=== PATIENT | female | born 1960 | race Hispanic/Latino ===

== ENCOUNTER 2017-08-18 12:18 | Emergency (ER) | payer MEDICAID ==
[2017-08-18] MEDS ORDERED: BUPIVACAINE/PF 0.5% 30ML VIAL ONE (13:01)
[2017-08-18] MEDS ORDERED: CEFTRIAXONE SODIUM 1 GM ONE (14:23)
[2017-08-18] MEDS ORDERED: LIDOCAINE HCL-MPF 1% 2ML VIAL ONE (14:23)
== END 2017-08-18 14:36 | disposition home or self-care (01) ==
LOC: EDH 12:18
DX: S91.012A Laceration without foreign body, left ankle, initial encounter (principal); S71.151A Open bite, right thigh, initial encounter; E11.9 Type 2 diabetes mellitus without complications; E78.5 Hyperlipidemia, unspecified; Z88.1 Allergy status to other antibiotic agents; Z88.6 Allergy status to analgesic agent; Z85.038 Personal history of other malignant neoplasm of large intestine; Z79.4 Long term (current) use of insulin; Z72.0 Tobacco use; W54.0XXA Bitten by dog, initial encounter; Y93.89 Activity, other specified; Y92.89 Other specified places as the place of occurrence of the external cause; Y99.8 Other external cause status
CPT/HCPCS: 12032; 73610; 96372; 99284; J0696; J3490 ×2

== ENCOUNTER 2018-02-20 13:37 | Inpatient (IN) | payer MEDICAID ==
[~2018-02-20] VITALS: Ht 160 cm; Wt 77.6 kg
[2018-02-20 14:27] LABS: BASOPHILS % (AUTO) 0.5 % (0.0-5.0); EOSINOPHILS % (AUTO) 1.2 % (0.0-8.0); MEAN CORPUSCULAR HEMOGLOBIN 30.2 pg (27.0-33.0); MEAN CORPUSCULAR HGB CONC 34.1 g/dL (32.0-36.0); MEAN CORPUSCULAR VOLUME 88.6 fL (79-99); MONOCYTES % (AUTO) 3.9 % (3.0-13.0); NEUTROPHILS % (AUTO) 74.4 % (40.0-77.0); PLATELET COUNT (AUTO) 202 K/uL (130-400); RED BLOOD CELL COUNT(AUTO) 4.06 MIL/uL (4.00-5.50); RED CELL DISTRIBUTION WIDTH 13.4 % (11.0-15.5); WHITE BLOOD COUNT (AUTO) 8.9 K/uL (4.8-10.8)
[2018-02-20 14:28] LABS: APPEARANCE,URINE Turbid (CLEAR); BILIRUBIN,URINE Negative (NEGATIVE); COLOR,URINE Yellow (YELLOW); GLUCOSE, URINE (UA) >=1000 mg/dL (NEGATIVE); KETONES,URINE 15 mg/dL (NEGATIVE); LEUKOCYTE ESTERASE ,URINE Large (NEGATIVE); NITRATE,URINE Negative (NEGATIVE); OCCULT BLOOD,URINE Moderate (NEGATIVE); PROTEIN,URINE POS 2+ (NEGATIVE)
[2018-02-20] MEDS ORDERED: ONDANSETRON HCL MDV 20ML 2 MG/ML VIAL ONE (14:34)
[2018-02-20] MEDS ORDERED: KETOROLAC TROMETHAMINE 30MG/ML ONE (14:35)
[2018-02-20] MEDS ORDERED: CEFTRIAXONE SODIUM 1 GM ONE (14:35)
[2018-02-20] MEDS ORDERED: SODIUM CHLORIDE 0.9% 1000ML 1,000 ML IV ONE ×2 (14:35→19:44)
[2018-02-20 14:43] LABS: ALBUMIN 3.1 g/dL (3.5-5.0); BILIRUBIN,TOTAL 0.6 mg/dL (0.2-1.0); CREATININE 1.2 mg/dL (0.5-1.5); POTASSIUM 4.7 mmol/L (3.5-5.1); TOTAL PROTEIN, SERUM 6.8 g/dL (6.0-8.3)
[2018-02-20 14:50] LABS: BACTERIA,URINE Few /HPF (None Seen); SQUAMOUS EPITHELIAL CELL,UR 0-2 /HPF (0-2); WBC,URINE >100 /HPF (0-1)
[2018-02-20] MEDS ORDERED: INSULIN HUMULIN R 100 UNIT/ML 3ML ONE ×2 (15:15→17:00)
[2018-02-20] MEDS: SODIUM CHLORIDE 0.9% 1000ML 1,000 ML IV SCH (19:30)
[2018-02-20] MEDS ORDERED: ZOSYN 3.375GM+NS 50ML 50 ML IV ONE ×2 (19:44→19:47)
[2018-02-20] MEDS ORDERED: GLUCAGON 1MG KIT 1 MG ML IM PRN (19:45)
[2018-02-20] MEDS ORDERED: DEXTROSE 50%-WATER 50 ML DISP.SYRIN IV PRN (19:45)
[2018-02-20] MEDS ORDERED: SODIUM CHLORIDE 0.9% 50 ML IV ONE (19:48)
[2018-02-20] MEDS: ZOSYN 3.375GM+NS 50ML 50 ML IV SCH (20:00)
[2018-02-20 20:45] VITALS: BP 125/95
[2018-02-20] MEDS: INSULIN R PO SS1/2 SQ SCH (20:56)
[2018-02-20] MEDS: INSULIN R PO SS2 SQ SCH (20:57)
[2018-02-21 00:20] VITALS: BP 118/57
[2018-02-21] MEDS ORDERED: ONDA4TAB9 PO (00:29)
[2018-02-21] MEDS ORDERED: ISOS30TA6 PO (00:29)
[2018-02-21] MEDS ORDERED: SERT50TA12 PO (00:29)
[2018-02-21] MEDS ORDERED: AMLO-128 PO (00:29)
[2018-02-21] MEDS ORDERED: TRAM50TA4 PO (00:29)
[2018-02-21] MEDS ORDERED: ATOR10 PO (00:29)
[2018-02-21] MEDS ORDERED: RIFA150C3 PO (00:29)
[2018-02-21] MEDS ORDERED: GABA-529 PO (00:29)
[2018-02-21] MEDS ORDERED: MECL12.585 PO (00:29)
[2018-02-21] MEDS ORDERED: IBUP-2070 PO (00:29)
[2018-02-21 04:00] VITALS: BP 112/56
[2018-02-21] MEDS ORDERED: SODIUM CHLORIDE 0.9% 500ML 500 ML IV ONE (04:26)
[2018-02-21] MEDS ORDERED: ONDANSETRON HCL 4 MG/2 ML VIAL IVP PRN (04:30)
[2018-02-21] MEDS ORDERED: ONDANSETRON HCL MDV 20ML 2 MG/ML VIAL ONE (04:40)
[2018-02-21] MEDS ORDERED: ACETAMINOPHEN 325 MG TAB ONE (04:40)
[2018-02-21] MEDS: ZOSYN 3.375GM+NS 50ML 50 ML IV SCH ×3 (04:43→21:44)
[2018-02-21] MEDS: INSULIN R PO SS1/2 SQ SCH ×4 (06:41→21:00)
[2018-02-21] MEDS: INSULIN R PO SS2 SQ SCH ×4 (06:45→21:42)
[2018-02-21 07:00] VITALS: BP 121/65
[2018-02-21] MEDS: PANTOPRAZOLE SODIUM 40 MG TABLET.DR PO SCH (08:56)
[2018-02-21] MEDS ORDERED: ENOXAPARIN SODIUM 40 MG/0.4 ML SYRINGE SQ SCH (09:00)
[2018-02-21 11:00] VITALS: BP 110/52
[2018-02-21] MEDS: SODIUM CHLORIDE 0.9% 1000ML 1,000 ML IV SCH (12:10)
[2018-02-21 16:00] VITALS: BP 126/66
[2018-02-21] MEDS ORDERED: KETOROLAC TROMETHAMINE 30MG/ML IV PRN (16:30)
[2018-02-21] MEDS ORDERED: MORPHINE SULFATE 4 MG/1ML SYG IV PRN (16:30)
[2018-02-21 19:00] VITALS: BP 119/55
[2018-02-21] MEDS: ONDANSETRON 4 MG TABLET PO SCH (21:45)
[2018-02-21] MEDS: TRAMADOL HCL 50 MG TABLET PO SCH (21:45)
[2018-02-21] MEDS: MECLIZINE HCL 12.5 MG TABLET PO SCH (21:46)
[2018-02-21] MEDS: ATORVASTATIN CALCIUM 20 MG TABLET PO SCH (21:46)
[2018-02-21] MEDS: GABAPENTIN 100 MG CAPSULE PO SCH (21:46)
[2018-02-21] MEDS: AMLODIPINE BENAZEPRIL PO SCH (21:48)
[2018-02-22] VITALS (7 sets, daily range): BP systolic 122–154; BP diastolic 53–66
[2018-02-22] MEDS ORDERED: ONDANSETRON HCL MDV 20ML 2 MG/ML VIAL ONE (00:09)
[2018-02-22 04:13] LABS: HEMATOCRIT 33.5 % (36-48); MEAN CORPUSCULAR HEMOGLOBIN 30.2 pg (27.0-33.0); MEAN CORPUSCULAR HGB CONC 34.2 g/dL (32.0-36.0); MEAN CORPUSCULAR VOLUME 88.4 fL (79-99); PLATELET COUNT (AUTO) 201 K/uL (130-400); RED CELL DISTRIBUTION WIDTH 13.8 % (11.0-15.5)
[2018-02-22 04:32] LABS: POTASSIUM 3.4 mmol/L (3.5-5.1)
[2018-02-22] MEDS: ZOSYN 3.375GM+NS 50ML 50 ML IV SCH ×3 (05:38→21:18)
[2018-02-22] MEDS: SODIUM CHLORIDE 0.9% 1000ML 1,000 ML IV SCH ×2 (05:38→21:30)
[2018-02-22] MEDS: INSULIN R PO SS1/2 SQ SCH ×4 (06:17→21:32)
[2018-02-22] MEDS: INSULIN R PO SS2 SQ SCH ×3 (06:18→16:30)
[2018-02-22] MEDS ORDERED: IOHEXOL-350 75 ML VIAL IV ONE (08:13)
[2018-02-22] MEDS ORDERED: POTASSIUM CHLORIDE 10% ELIXIR 20 MEQ/15 ML UDCUP PO PRN (08:30)
[2018-02-22] MEDS ORDERED: POTASSIUM CHLORIDE 20 MEQ ERTAB PO PRN (08:30)
[2018-02-22] MEDS ORDERED: LIDOCAINE HCL-MPF 1% 2ML VIAL IVP PRN (08:30)
[2018-02-22] MEDS ORDERED: POTASSIUM CHLORIDE 20MEQ/100ML 100 ML IV PRN (08:30)
[2018-02-22] MEDS: TRAMADOL HCL 50 MG TABLET PO SCH ×2 (09:00→21:21)
[2018-02-22] MEDS: MECLIZINE HCL 12.5 MG TABLET PO SCH ×3 (09:00→21:20)
[2018-02-22] MEDS: GABAPENTIN 100 MG CAPSULE PO SCH ×3 (09:00→21:20)
[2018-02-22] MEDS: PANTOPRAZOLE SODIUM 40 MG TABLET.DR PO SCH (09:00)
[2018-02-22] MEDS: AMLODIPINE BENAZEPRIL PO SCH ×2 (09:00→21:22)
[2018-02-22] MEDS: ONDANSETRON 4 MG TABLET PO SCH ×2 (13:05→21:21)
[2018-02-22] MEDS: SERTRALINE HCL 50 MG TABLET PO SCH (13:18)
[2018-02-22] MEDS: ISOSORBIDE MONO 30MG TAB SR PO SCH (13:25)
[2018-02-22] MEDS: ATORVASTATIN CALCIUM 20 MG TABLET PO SCH (21:20)
[2018-02-22] MEDS: INSULIN GLARGINE 100 UNITS/ML 10 ML VIAL SQ SCH (21:30)
[2018-02-23] MEDS: ACETAMINOPHEN 325 MG TAB PO PRN ×2 (02:13→15:52)
[2018-02-23] MEDS: ZOSYN 3.375GM+NS 50ML 50 ML IV SCH ×3 (03:27→21:36)
[2018-02-23 04:00] VITALS: BP 123/51
[2018-02-23] MEDS: SODIUM CHLORIDE 0.9% 1000ML 1,000 ML IV SCH ×2 (05:31→21:45)
[2018-02-23] MEDS: INSULIN R PO SS1/2 SQ SCH ×4 (06:42→21:54)
[2018-02-23 08:32] VITALS: BP 125/61
[2018-02-23] MEDS: AMLODIPINE BENAZEPRIL PO SCH ×2 (09:00→21:00)
[2018-02-23] MEDS: ISOSORBIDE MONO 30MG TAB SR PO SCH (09:31)
[2018-02-23] MEDS: MECLIZINE HCL 12.5 MG TABLET PO SCH ×3 (09:31→21:00)
[2018-02-23] MEDS: GABAPENTIN 100 MG CAPSULE PO SCH ×3 (09:32→21:38)
[2018-02-23] MEDS: PANTOPRAZOLE SODIUM 40 MG TABLET.DR PO SCH (09:34)
[2018-02-23] MEDS: TRAMADOL HCL 50 MG TABLET PO SCH ×2 (09:34→21:38)
[2018-02-23] MEDS: ONDANSETRON 4 MG TABLET PO SCH ×2 (09:34→21:38)
[2018-02-23] MEDS: SERTRALINE HCL 50 MG TABLET PO SCH (09:35)
[2018-02-23 11:54] VITALS: BP 118/58
[2018-02-23 16:04] VITALS: BP 115/55
[2018-02-23 19:00] VITALS: BP 127/58
[2018-02-23] MEDS: ATORVASTATIN CALCIUM 20 MG TABLET PO SCH (21:38)
[2018-02-23] MEDS: INSULIN GLARGINE 100 UNITS/ML 10 ML VIAL SQ SCH (21:52)
[2018-02-23 23:00] VITALS: BP 137/58
[2018-02-24 03:00] VITALS: BP 128/64
[2018-02-24] MEDS: ZOSYN 3.375GM+NS 50ML 50 ML IV SCH ×2 (04:18→11:22)
[2018-02-24] MEDS: INSULIN R PO SS1/2 SQ SCH ×2 (06:06→11:15)
[2018-02-24 08:05] VITALS: BP 125/66
[2018-02-24] MEDS: AMLODIPINE BENAZEPRIL PO SCH (08:46)
[2018-02-24] MEDS: MECLIZINE HCL 12.5 MG TABLET PO SCH ×2 (08:48→13:45)
[2018-02-24] MEDS: ONDANSETRON 4 MG TABLET PO SCH (08:48)
[2018-02-24] MEDS: ISOSORBIDE MONO 30MG TAB SR PO SCH (08:48)
[2018-02-24] MEDS: GABAPENTIN 100 MG CAPSULE PO SCH ×2 (08:48→13:45)
[2018-02-24] MEDS: PANTOPRAZOLE SODIUM 40 MG TABLET.DR PO SCH (08:49)
[2018-02-24] MEDS: SERTRALINE HCL 50 MG TABLET PO SCH (08:49)
[2018-02-24] MEDS: TRAMADOL HCL 50 MG TABLET PO SCH (08:49)
[2018-02-24 12:06] VITALS: BP 125/50
[2018-03-26] MEDS ORDERED: POTASSIUM CHLORIDE 20 MEQ ERTAB PO ONE (06:32)
== END 2018-02-24 16:30 | disposition home or self-care (01) | DRG 720 ==
LOC: EDH 13:37 → EDHIP 13:38 → OBSVTOIN 13:38 → 3AH 20:18
PROVIDERS: ADMIT Internal Medicine; ATTEND Internal Medicine
DX: A41.9 Sepsis, unspecified organism (principal); E11.40 Type 2 diabetes mellitus with diabetic neuropathy, unspecified; E11.649 Type 2 diabetes mellitus with hypoglycemia without coma; N10 Acute pyelonephritis; F41.9 Anxiety disorder, unspecified; F32.9 Major depressive disorder, single episode, unspecified; E11.65 Type 2 diabetes mellitus with hyperglycemia; N20.0 Calculus of kidney; I10 Essential (primary) hypertension; E78.5 Hyperlipidemia, unspecified; I25.10 Atherosclerotic heart disease of native coronary artery without angina pectoris; Z91.19 Patient's noncompliance with other medical treatment and regimen; Z82.5 Family history of asthma and other chronic lower respiratory diseases; Z82.49 Family history of ischemic heart disease and other diseases of the circulatory system
CPT/HCPCS: 36415; 74176; 74178; 80048; 80053; 81001; 82947; 82948; 84132; 85025; 85027; 87040; 87088; 99291; J0696; J1650; J1815; J1885; J2543; J7030; J7040; J7070; Q0162; Q9967

== ENCOUNTER → 2019-09-20 | Outpatient (CLI) | payer MEDICAID ==
[~2019-09-20] MED LIST: AMLO-97 PO; ATOR10 PO; GABA-529 PO; IBUP-2070 PO; ISOS30TA6 PO; MECL-183 PO; ONDA-104 PO; RIFA150C3 PO; SERT50TA12 PO; TRAM50TA4 PO
== END | disposition home or self-care (01) ==
LOC: SHCH 09:51
PROVIDERS: ATTEND Internal Medicine Cardiovascular Disease
DX: I73.9 Peripheral vascular disease, unspecified (principal)
CPT/HCPCS: 93925

== ENCOUNTER → 2019-09-23 | Outpatient (CLI) | payer MEDICAID ==
[~2019-09-23] MED LIST changes: +REGADENOSON 0.4 MG/5 ML PF SYG IVP SCH
== END | disposition home or self-care (01) ==
LOC: SHCH 08:58
PROVIDERS: ATTEND Internal Medicine Cardiovascular Disease
DX: R07.9 Chest pain, unspecified (principal)
CPT/HCPCS: 78452; 93017; 96374; A9500 ×2; J2785

== ENCOUNTER → 2019-10-02 | Outpatient (CLI) | payer MEDICAID ==
[~2019-10-02] MED LIST changes: -REGADENOSON 0.4 MG/5 ML PF SYG IVP SCH
== END | disposition home or self-care (01) ==
LOC: SHCH 10:00
PROVIDERS: ATTEND Internal Medicine Cardiovascular Disease
DX: I10 Essential (primary) hypertension (principal)
CPT/HCPCS: 93306; 93356

== ENCOUNTER → 2019-10-29 | Outpatient (CLI) | payer MEDICAID ==
[~2019-10-29] MED LIST changes: +IOHEXOL 350 MG/ML 100ML INFUS..BTL IV ONE; +IOHEXOL-350 50ML VIAL IV ONE
== END | disposition home or self-care (01) ==
LOC: RAH 07:48
PROVIDERS: ATTEND Internal Medicine Cardiovascular Disease
DX: K57.30 Diverticulosis of large intestine without perforation or abscess without bleeding (principal); I70.0 Atherosclerosis of aorta; K76.0 Fatty (change of) liver, not elsewhere classified; K59.00 Constipation, unspecified; I73.9 Peripheral vascular disease, unspecified; N28.1 Cyst of kidney, acquired
CPT/HCPCS: 75635; Q9967 ×2

== ENCOUNTER → 2020-10-01 | Outpatient (CLI) | payer MEDICAID ==
[~2020-10-01] VITALS: Ht 157.5 cm; Wt 66.2 kg
[~2020-10-01] MED LIST changes: -IOHEXOL 350 MG/ML 100ML INFUS..BTL IV ONE; -IOHEXOL-350 50ML VIAL IV ONE; -ISOS30TA6 PO; +ISOS30TA92 PO; -MECL-183 PO; +MECL-226 PO; +REGADENOSON 0.4 MG/5 ML PF SYG IVP SCH; +SERT-439 PO; -SERT50TA12 PO
== END | disposition home or self-care (01) ==
LOC: SHCH 08:40
PROVIDERS: ATTEND Internal Medicine Cardiovascular Disease
DX: R07.9 Chest pain, unspecified (principal)
CPT/HCPCS: 78452; 93017; 96374; A9500 ×2; J2785

== ENCOUNTER → 2020-10-16 | Outpatient (CLI) | payer MEDICAID ==
[~2020-10-16] MED LIST changes: -REGADENOSON 0.4 MG/5 ML PF SYG IVP SCH
== END | disposition home or self-care (01) ==
LOC: SHCH 10:32
PROVIDERS: ATTEND Internal Medicine Cardiovascular Disease
DX: R60.9 Edema, unspecified (principal)
CPT/HCPCS: 93970

== ENCOUNTER 2021-01-31 11:21 | Emergency (ER) | payer MEDICAID ==
[~2021-01-31] VITALS: Ht 157.5 cm; Wt 68.9 kg
[2021-01-31 11:30] VITALS: BP 140/56
[2021-01-31 11:41] LABS: BASOPHILS % (AUTO) 0.6 % (0.0-5.0); EOSINOPHILS % (AUTO) 0.2 % (0.0-8.0); HEMATOCRIT 35.3 % (36-48); LYMPHOCYTES % (AUTO) 16.9 % (21.0-51.0); MEAN CORPUSCULAR HEMOGLOBIN 29.8 pg (27.0-33.0); MEAN CORPUSCULAR HGB CONC 32.3 g/dL (32.0-36.0); MEAN CORPUSCULAR VOLUME 92.2 fL (79-99); MONOCYTES % (AUTO) 3.3 % (3.0-13.0); NEUTROPHILS % (AUTO) 78.5 % (40.0-77.0); PLATELET COUNT (AUTO) 245 K/uL (130-400); RED BLOOD CELL COUNT(AUTO) 3.83 MIL/uL (4.00-5.50); RED CELL DISTRIBUTION WIDTH 13.1 % (11.0-15.5); WHITE BLOOD COUNT (AUTO) 11.1 K/uL (4.8-10.8)
[2021-01-31 12:06] LABS: CARBON DIOXIDE 27 mmol/L (21-32); CHLORIDE 102 mmol/L (101-111); CREATININE 0.9 mg/dL (0.5-1.5); GLOMERULAR FILTR. RATE CALC 68 mL/min (>60); GLUCOSE,RANDOM 376 mg/dL (70-105); POTASSIUM 4.7 mmol/L (3.5-5.1); SODIUM SERUM 137 mmol/L (136-145); UREA NITROGEN, BLOOD 23 mg/dL (7-18)
[2021-01-31 12:09] LABS: INR 0.93 (0.85-1.15); PROTHROMBIN TIME 10.2 SEC (9.6-11.6)
[2021-01-31 12:10] LABS: PARTIAL THROMBOPLASTIN TIME 23.2 SEC (26.3-35.5)
[2021-01-31 12:11] LABS: ALANINE AMINOTRANSFERASE 24 U/L (12-78); ALBUMIN 3.4 g/dL (3.5-5.0); ASPARTATE AMINOTRANSFERASE 20 U/L (10-37); BILIRUBIN,TOTAL 0.2 mg/dL (0.2-1.0); TOTAL PROTEIN, SERUM 7.1 g/dL (6.0-8.3)
[2021-01-31 12:12] LABS: ALCOHOL, BLOOD < 3 mg/dL (0-10)
[2021-01-31 12:30] VITALS: BP 155/51
[2021-01-31] MEDS ORDERED: 0.9%NACL 1000ML 1,000 ML IV ONE (12:30)
[2021-01-31] MEDS ORDERED: INSULIN HUMULIN R 100 UNIT/ML 3ML IV ONE (12:30)
[2021-01-31] MEDS ORDERED: KETOROLAC 30MG VIAL (30MG/ML) IV SCH (12:30)
[2021-01-31] MEDS ORDERED: CYCLOBENZAPRINE HCL 10 MG TABLET PO SCH (12:30)
[2021-01-31 13:12] VITALS: BP 151/55
[2021-01-31 13:30] VITALS: BP 155/51
[2021-01-31] MEDS ORDERED: CYCL10 PO (13:45)
[2021-01-31] MEDS ORDERED: TRAM1TAB PO (13:45)
[2021-01-31 14:15] VITALS: BP 133/54
== END 2021-01-31 14:40 | disposition home or self-care (01) ==
LOC: EDH 11:21
DX: S16.1XXA Strain of muscle, fascia and tendon at neck level, initial encounter (principal); S30.0XXA Contusion of lower back and pelvis, initial encounter; S40.012A Contusion of left shoulder, initial encounter; S09.90XA Unspecified injury of head, initial encounter; E11.65 Type 2 diabetes mellitus with hyperglycemia; M79.7 Fibromyalgia; E78.00 Pure hypercholesterolemia, unspecified; E11.51 Type 2 diabetes mellitus with diabetic peripheral angiopathy without gangrene; I25.10 Atherosclerotic heart disease of native coronary artery without angina pectoris; E11.42 Type 2 diabetes mellitus with diabetic polyneuropathy; Z79.1 Long term (current) use of non-steroidal anti-inflammatories (NSAID); Z88.2 Allergy status to sulfonamides; Z88.1 Allergy status to other antibiotic agents; Z88.5 Allergy status to narcotic agent; I10 Essential (primary) hypertension; Z79.4 Long term (current) use of insulin; Z79.899 Other long term (current) drug therapy; W18.39XA Other fall on same level, initial encounter; Y93.89 Activity, other specified; Y92.89 Other specified places as the place of occurrence of the external cause; Y99.8 Other external cause status
CPT/HCPCS: 36415; 70450; 72125; 72220; 73030; 80053; 84484; 85025; 85610; 85730; 93005 ×2; 96361; 96374; 96375; 99285; J1815; J1885; J7030

== ENCOUNTER 2021-12-23 14:28 | Emergency (ER) | payer MEDICAID ==
[~2021-12-23] VITALS: Ht 160 cm; Wt 68.0 kg
[~2021-12-23 14:28] MED LIST changes: +AMLO-142 PO; +AMLO-259 PO; -AMLO-97 PO; -ATOR10 PO; +CILO100T PO; +CLOP75TA14 PO; -GABA-529 PO; +GABA300C PO; -IBUP-2070 PO; +INSU100I15 SQ; +LINA145C PO; -MECL-226 PO; +METO-408 PO; -ONDA-104 PO; +PANT40TA54 PO; -RIFA150C3 PO; +ROSU20TA31 PO; -SERT-439 PO; -TRAM50TA4 PO; +UBID100C10 PO; +VILA20TA PO
[2021-12-23 14:54] LABS: BASOPHILS % (AUTO) 0.8 % (0.0-5.0); EOSINOPHILS % (AUTO) 2.1 % (0.0-8.0); LYMPHOCYTES % (AUTO) 34.7 % (21.0-51.0); MEAN CORPUSCULAR HEMOGLOBIN 29.2 pg (27.0-33.0); MEAN CORPUSCULAR HGB CONC 32.2 g/dL (32.0-36.0); MEAN CORPUSCULAR VOLUME 90.7 fL (79-99); MONOCYTES % (AUTO) 4.4 % (3.0-13.0); NEUTROPHILS % (AUTO) 57.8 % (40.0-77.0); PLATELET COUNT (AUTO) 261 K/uL (130-400); RED BLOOD CELL COUNT(AUTO) 3.97 MIL/uL (4.00-5.50); RED CELL DISTRIBUTION WIDTH 13.8 % (11.0-15.5)
[2021-12-23 15:04] LABS: BILIRUBIN,URINE Negative (NEGATIVE); COLOR,URINE Yellow (YELLOW); GLUCOSE, URINE (UA) >=1000 mg/dL (NEGATIVE); KETONES,URINE Negative (NEGATIVE); LEUKOCYTE ESTERASE ,URINE Negative (NEGATIVE); NITRATE,URINE Negative (NEGATIVE); OCCULT BLOOD,URINE Negative (NEGATIVE); PH,URINE 5.5 (5.0-8.0); PROTEIN,URINE POS 1+ mg/dL (NEGATIVE)
[2021-12-23 15:11] LABS: INR 0.93 (0.85-1.15); PROTHROMBIN TIME 9.8 SEC (9.6-11.6)
[2021-12-23 15:12] LABS: PARTIAL THROMBOPLASTIN TIME 21.5 SEC (26.3-35.5)
[2021-12-23 15:14] LABS: ALBUMIN 3.4 g/dL (3.5-5.0); BILIRUBIN,TOTAL 0.2 mg/dL (0.2-1.0); POTASSIUM 3.9 mmol/L (3.5-5.1)
[2021-12-23 15:15] LABS: APPEARANCE,URINE HAZY (CLEAR)
[2021-12-23 15:35] LABS: BACTERIA,URINE Few /HPF (None Seen); RBC,URINE None Seen /HPF (0-1); SQUAMOUS EPITHELIAL CELL,UR 0-2 /HPF (0-2)
[2021-12-23] MEDS ORDERED: 0.9%NACL 1000ML 1,000 ML IV SCH (16:30)
[2021-12-23] MEDS ORDERED: INSULIN HUMULIN R 100 UNIT/ML 3ML IV ONE (16:30)
[2021-12-23 16:38] VITALS: BP 128/42
[2021-12-23 16:48] LABS: AMPHET/METH SCREEN,URINE NEGATIVE (NEGATIVE); BARBITURATE SCREEN, URINE NEGATIVE (NEGATIVE); BENZODIAZEPINES SCREEN,URINE NEGATIVE (NEGATIVE); CANNABINOID SCREEN,URINE NEGATIVE (NEGATIVE); COCAINE SCREEN,URINE NEGATIVE (NEGATIVE); OPIATE SCREEN,URINE NEGATIVE (NEGATIVE); PHENCYCLIDINE SCREEN,URINE NEGATIVE (NEGATIVE)
== END 2021-12-23 17:37 | disposition left against medical advice (07) ==
LOC: EDH 14:28
DX: E11.65 Type 2 diabetes mellitus with hyperglycemia (principal); R29.6 Repeated falls; R55 Syncope and collapse; E11.51 Type 2 diabetes mellitus with diabetic peripheral angiopathy without gangrene; E78.00 Pure hypercholesterolemia, unspecified; I10 Essential (primary) hypertension; I25.10 Atherosclerotic heart disease of native coronary artery without angina pectoris; M79.7 Fibromyalgia; Z88.5 Allergy status to narcotic agent; Z88.1 Allergy status to other antibiotic agents; Z79.899 Other long term (current) drug therapy; Z79.4 Long term (current) use of insulin; Z88.2 Allergy status to sulfonamides
CPT/HCPCS: 36415; 70450; 80053; 80305; 81001; 82010; 84484; 85025; 85610; 85730; 93005; 96361; 96374; 99285; J1815; J7030

== ENCOUNTER → 2022-10-17 | Outpatient (CLI) | payer MEDICAID ==
[~2022-10-17] MED LIST changes: -CILO100T PO; +CILO100T3 PO; +CLOP-31 PO; -CLOP75TA14 PO
[2022-10-17 16:22] LABS: BASOPHILS % (AUTO) 0.8 % (0.0-5.0); EOSINOPHILS % (AUTO) 1.4 % (0.0-8.0); HEMATOCRIT 26.5 % (36-48); LYMPHOCYTES % (AUTO) 28.4 % (21.0-51.0); MEAN CORPUSCULAR HEMOGLOBIN 24.8 pg (27.0-33.0); MEAN CORPUSCULAR HGB CONC 29.4 g/dL (32.0-36.0); MEAN CORPUSCULAR VOLUME 84.1 fL (79-99); MONOCYTES % (AUTO) 3.8 % (3.0-13.0); NEUTROPHILS % (AUTO) 65.5 % (40.0-77.0); PLATELET COUNT (AUTO) 290 K/uL (130-400); RED BLOOD CELL COUNT(AUTO) 3.15 MIL/uL (4.00-5.50); RED CELL DISTRIBUTION WIDTH 14.6 % (11.0-15.5); WHITE BLOOD COUNT (AUTO) 7.2 K/uL (4.8-10.8)
[2022-10-17 16:31] LABS: CREATININE 1.1 mg/dL (0.5-1.5)
[2022-10-17 16:32] LABS: INR 0.93 (0.85-1.15)
[2022-10-17 16:33] LABS: PARTIAL THROMBOPLASTIN TIME 23.3 SEC (26.3-35.5)
== END | disposition home or self-care (01) ==
LOC: LAB 13:51
PROVIDERS: ATTEND Internal Medicine Cardiovascular Disease
DX: I73.9 Peripheral vascular disease, unspecified (principal)
CPT/HCPCS: 36415; 80048; 85025; 85610; 85730

== ENCOUNTER 2023-08-25 19:51 | Emergency (ER) | payer MEDICAID ==
[~2023-08-25] VITALS: Ht 157.5 cm; Wt 73.5 kg
[~2023-08-25 19:51] MED LIST changes: -ROSU20TA31 PO; +ROSU20TA73 PO
[2023-08-25 20:58] LABS: BASOPHILS # (AUTO) 0.04 K/uL (0.00-0.20); BASOPHILS % (AUTO) 0.5 % (0.0-5.0); EOSINOPHILS # (AUTO) 0.12 K/uL (0.00-0.70); EOSINOPHILS % (AUTO) 1.4 % (0.0-8.0); HEMATOCRIT 31.2 % (36-48); IMMATURE GRANULOCYTE ABSOLUTE 0.02 K/uL (0-1); LYMPHOCYTES # (AUTO) 2.6 K/uL (1.0-4.8); MEAN CORPUSCULAR HEMOGLOBIN 28.3 pg (27.0-33.0); MEAN CORPUSCULAR HGB CONC 32.1 g/dL (32.0-36.0); MEAN CORPUSCULAR VOLUME 88.4 fL (79-99); MONOCYTES # (AUTO) 0.5 K/uL (0.1-1.0); MONOCYTES % (AUTO) 5.6 % (3.0-13.0); NEUTROPHILS # (AUTO) 5.5 K/uL (1.8-7.7); NEUTROPHILS % (AUTO) 62.3 % (40.0-77.0); PLATELET COUNT (AUTO) 276 K/uL (130-400); RED BLOOD CELL COUNT(AUTO) 3.53 MIL/uL (4.00-5.50); RED CELL DISTRIBUTION WIDTH 14.4 % (11.0-15.5); WHITE BLOOD COUNT (AUTO) 8.8 K/uL (4.8-10.8)
[2023-08-25 21:26] LABS: ALBUMIN 3.7 g/dL (3.5-5.0); BILIRUBIN,TOTAL 0.3 mg/dL (0.2-1.0); CREATININE 1.3 mg/dL (0.5-1.5); POTASSIUM 4.3 mmol/L (3.5-5.1); TOTAL PROTEIN, SERUM 7.5 g/dL (6.0-8.3)
[2023-08-26] MEDS ORDERED: AMOX-427 PO (00:54)
[2023-08-26] MEDS: ACETAMINOPHEN 500 MG TABLET PO ONE (01:00)
[2023-08-26] MEDS: AMOX/CLAV 875/125MG TAB PO ONE (01:00)
[2023-08-26] MEDS: TETANUS/DIPHTHERIA TOXOID [ADULT] 0.5 ML VIAL IM ONE (01:04)
[2023-08-26 01:07] VITALS: BP 130/59; PULSE 95; RESP 19; O2SAT 100
== END 2023-08-26 01:18 | disposition home or self-care (01) ==
LOC: EDH 19:51
DX: S61.451A Open bite of right hand, initial encounter (principal); E78.00 Pure hypercholesterolemia, unspecified; I10 Essential (primary) hypertension; I25.10 Atherosclerotic heart disease of native coronary artery without angina pectoris; M79.7 Fibromyalgia; Z79.02 Long term (current) use of antithrombotics/antiplatelets; Z79.4 Long term (current) use of insulin; Z79.899 Other long term (current) drug therapy; Z88.1 Allergy status to other antibiotic agents; Z88.2 Allergy status to sulfonamides; Z88.5 Allergy status to narcotic agent; Z95.1 Presence of aortocoronary bypass graft; W54.0XXA Bitten by dog, initial encounter; Y93.89 Activity, other specified; Y92.89 Other specified places as the place of occurrence of the external cause; Y99.8 Other external cause status
CPT/HCPCS: 36415; 73120; 80053; 85025; 90471; 90714

== ENCOUNTER 2023-12-19 21:06 | Observation (INO) | payer MEDICAID ==
[~2023-12-19] VITALS: Ht 160 cm; Wt 108.6 kg
[~2023-12-19 21:06] MED LIST changes: +AMOX-427 PO
[2023-12-19] MEDS: FAMOTIDINE 20MG VIAL IV ONE (21:41)
[2023-12-19] MEDS: SOLU-MEDROL 125MG VIAL IVP ONE (21:42)
[2023-12-19] MEDS: DiphenhydrAMINE HCL 50 MG/ML VIAL IV ONE (21:42)
[2023-12-19] MEDS: 0.9% NACL 500ML IV.SOLN 500 ML IV ONE (21:44)
[2023-12-19] MEDS: ONDANSETRON 4MG INJ IVP ONE (23:21)
[2023-12-19] MEDS: ONDANSETRON 4MG INJ ONE (23:35)
[2023-12-19] MEDS: LACTATED RINGERS 1000ML 1,000 ML IV ONE (23:43)
[2023-12-20 00:14] LABS: CREATININE 1.1 mg/dL (0.5-1.0); POTASSIUM 4.2 mmol/L (3.5-5.1)
[2023-12-20 00:40] LABS: BASOPHILS # (AUTO) 0.01 K/uL (0.00-0.20); BASOPHILS % (AUTO) 0.1 % (0.0-5.0); EOSINOPHILS # (AUTO) 0.01 K/uL (0.00-0.70); EOSINOPHILS % (AUTO) 0.1 % (0.0-8.0); HEMATOCRIT 36.1 % (36-48); IMMATURE GRANULOCYTE ABSOLUTE 0.03 K/uL (0-1); LYMPHOCYTES # (AUTO) 0.5 K/uL (1.0-4.8); LYMPHOCYTES % (AUTO) 4.5 % (21.0-51.0); MEAN CORPUSCULAR HEMOGLOBIN 27.8 pg (27.0-33.0); MEAN CORPUSCULAR HGB CONC 32.4 g/dL (32.0-36.0); MEAN CORPUSCULAR VOLUME 85.7 fL (79-99); MONOCYTES # (AUTO) 0.3 K/uL (0.1-1.0); MONOCYTES % (AUTO) 2.9 % (3.0-13.0); NEUTROPHILS # (AUTO) 9.5 K/uL (1.8-7.7); NEUTROPHILS % (AUTO) 92.1 % (40.0-77.0); PLATELET COUNT (AUTO) 210 K/uL (130-400); RED BLOOD CELL COUNT(AUTO) 4.21 MIL/uL (4.00-5.50); RED CELL DISTRIBUTION WIDTH 15.9 % (11.0-15.5); WHITE BLOOD COUNT (AUTO) 10.3 K/uL (4.8-10.8)
[2023-12-20 01:07] VITALS: O2SAT 94
[2023-12-20] MEDS ORDERED: GLUCAGON 1MG KIT 1 MG ML IM PRN (01:30)
[2023-12-20] MEDS ORDERED: ONDANSETRON 4MG INJ IV PRN (01:30)
[2023-12-20] MEDS ORDERED: DiphenhydrAMINE HCL 50 MG/ML VIAL IV PRN (01:30)
[2023-12-20] MEDS ORDERED: POTASSIUM CHLORIDE 20MEQ/100ML 100 ML IV PRN (01:30)
[2023-12-20] MEDS ORDERED: KCL 20 MEQ ERTAB PO PRN (01:30)
[2023-12-20] MEDS ORDERED: POTASSIUM CHLORIDE 10% ELIXIR 20 MEQ/15 ML UDCUP PO PRN (01:30)
[2023-12-20] MEDS ORDERED: ACETAMINOPHEN 325 MG TAB PO PRN (01:30)
[2023-12-20] MEDS ORDERED: DEXTROSE 50%-WATER 50 ML DISP.SYRIN IV PRN (01:30)
[2023-12-20 01:33] LABS: BASOPHILS # (AUTO) 0.01 K/uL (0.00-0.20); BASOPHILS % (AUTO) 0.1 % (0.0-5.0); HEMATOCRIT 36.6 % (36-48); IMMATURE GRANULOCYTE ABSOLUTE 0.02 K/uL (0-1); LYMPHOCYTES # (AUTO) 0.4 K/uL (1.0-4.8); LYMPHOCYTES % (AUTO) 3.5 % (21.0-51.0); MEAN CORPUSCULAR HEMOGLOBIN 28.3 pg (27.0-33.0); MEAN CORPUSCULAR HGB CONC 32.2 g/dL (32.0-36.0); MEAN CORPUSCULAR VOLUME 87.8 fL (79-99); MONOCYTES # (AUTO) 0.2 K/uL (0.1-1.0); MONOCYTES % (AUTO) 1.9 % (3.0-13.0); NEUTROPHILS # (AUTO) 9.8 K/uL (1.8-7.7); NEUTROPHILS % (AUTO) 94.3 % (40.0-77.0); PLATELET COUNT (AUTO) 193 K/uL (130-400); RED BLOOD CELL COUNT(AUTO) 4.17 MIL/uL (4.00-5.50); RED CELL DISTRIBUTION WIDTH 15.9 % (11.0-15.5); WHITE BLOOD COUNT (AUTO) 10.4 K/uL (4.8-10.8)
[2023-12-20 01:35] LABS: WBC MORPHOLOGY CONSISTENT W/DIFF
[2023-12-20 01:50] VITALS: BP 142/52; PULSE 80; RESP 19
[2023-12-20 02:08] LABS: ALBUMIN 3.6 g/dL (3.5-5.0); BILIRUBIN,TOTAL 0.3 mg/dL (0.2-1.0); MAGNESIUM 1.8 mg/dL (1.80-2.40); POTASSIUM 4.5 mmol/L (3.5-5.1); TOTAL PROTEIN, SERUM 6.9 g/dL (6.0-8.3)
[2023-12-20] MEDS: 0.9%NACL 1000ML 1,000 ML IV SCH (02:25)
[2023-12-20] MEDS: MAGNESIUM 2GM PREMIX 50ML 50 ML IV PRN (02:42)
[2023-12-20 04:17] VITALS: BP 135/55; PULSE 76
[2023-12-20] MEDS: DIPHENHYDRAMINE HCL 25 MG CAPSULE PO PRN (04:51)
[2023-12-20] MEDS: ACETAMINOPHEN 325 MG TAB PO PRN (04:52)
[2023-12-20] MEDS: INSULIN HUMULIN R 100 UNIT/ML 3ML SQ SCH (06:08)
[2023-12-20 08:00] VITALS: BP 124/60; PULSE 70; RESP 16
[2023-12-20] MEDS ORDERED: FAMOTIDINE 20MG VIAL IV SCH (09:00)
[2023-12-20] MEDS ORDERED: SOLU-MEDROL 40MG VIAL IVP SCH (09:00)
[2023-12-20] MEDS ORDERED: EPIN1KIT IJ (09:19)
[2023-12-20] MEDS ORDERED: METH4TAB3 PO (09:19)
== END 2023-12-20 09:30 | disposition home or self-care (01) ==
LOC: EDH 21:06 → EDHIP 21:07 → UNDOADMOB 12-20 01:09 → EDHIP 12-20 01:09 → 3CH 12-20 01:27
PROVIDERS: ADMIT Internal Medicine; ATTEND Internal Medicine
DX: T63.441A Toxic effect of venom of bees, accidental (unintentional), initial encounter (principal); I10 Essential (primary) hypertension; E11.65 Type 2 diabetes mellitus with hyperglycemia; E78.5 Hyperlipidemia, unspecified; M79.7 Fibromyalgia; E11.40 Type 2 diabetes mellitus with diabetic neuropathy, unspecified; E11.51 Type 2 diabetes mellitus with diabetic peripheral angiopathy without gangrene; E78.00 Pure hypercholesterolemia, unspecified; I25.10 Atherosclerotic heart disease of native coronary artery without angina pectoris; F17.210 Nicotine dependence, cigarettes, uncomplicated; Z86.73 Personal history of transient ischemic attack (TIA), and cerebral infarction without residual deficits; Z95.1 Presence of aortocoronary bypass graft; Z95.5 Presence of coronary angioplasty implant and graft; Z79.899 Other long term (current) drug therapy; Y92.89 Other specified places as the place of occurrence of the external cause
CPT/HCPCS: 96374; 96361; 96375 ×2; 82550; 80048; 85025 ×2; 36415 ×2; 99291; 93005; 96372; 83735; 80053; 82948; J7040; J7120; J1200; S0028; J2919; J2405; G0378 ×8; J3475; Q0163; J3490